=== PATIENT | male | born 1955 | race Caucasian/White ===

== ENCOUNTER → 2017-08-28 | Outpatient (CLI) | payer BC ==
[~2017-08-28] MED LIST: IOPAMIDOL (ISOVUE 370) 100 ML BTL IV ONE; methylPREDNISolone SOD SUCC 125 MG/2 ML VIAL ONE
== END ==
LOC: FIMAGING 09:08
PROVIDERS: ATTEND Internal Medicine Cardiovascular Disease
DX: I77.819 Aortic ectasia, unspecified site (principal)
CPT/HCPCS: Q9967